=== PATIENT | female | born 1965 | race Caucasian/White ===

== ENCOUNTER 2017-04-15 14:03 | Emergency (ER) | payer SELFPAY ==
[~2017-04-15] VITALS: Ht 152.4 cm; Wt 53.0 kg
[~2017-04-15 14:03] MED LIST: CLEO300C2 PO; HYDR-3533 PO; IBUP600 PO
[2017-04-15 14:10] VITALS: BP 151/75; PULSE 101; RESP 20; TEMP 98.2; O2SAT 95
--- NOTE | 2017-04-15 14:23 | PD ---
HPI Chief Complaint: cough, shortness of breath Time Seen by Provider: 14:12 Travel History International Travel<30 days: No Contact w/Intl Traveler<30days: No Traveled to known affect area: No History of Present Illness HPI This 51-year-old female is complaining of shortness of breath. She has been coughing and has been congested. She is not bringing anything up when she coughs. She feels like she is not able to get air in. He smokes half a pack of cigarettes a day. She is not aware of any fever or chills. She has not had any trouble breathing before. She has no history of asthma. She has had heart palpitations in the past. She has had some abnormal liver function tests of uncertain etiology and is also had renal insufficiency and has been dialyzed in the past though she has been on dialysis now. PFSH Past Medical History Arthritis: Yes Blood Disorders: No Anxiety: Yes (OCC) Depression: No Heart Rhythm Problems: Yes ("HEART PALPITATIONS") Cancer: No Cardiovascular Problems: Yes High Cholesterol: No Diminished Hearing: No Endocrine: No GERD: Yes Genitourinary: Yes Headaches: Yes Hypertension: Yes Immune Disorder: No Musculoskeletal: Yes Neurologic: Yes Psychiatric: Yes Reproductive: No Respiratory: No Immunizations Current: Yes Pneumonia: Yes Renal Failure: Yes (2010) PNEUMOCCOCAL Vaccine (Year): 2 : 3 Para: 2 Miscarriage: 1 Past Surgical History Abdominal Surgery: Yes (APPENDECTOMY) Appendectomy: Yes Gynecologic Surgery: Yes (HYSTERECTOMY) Hysterectomy: Yes Oral Surgery: Yes (THROAT) Other Surgery: Yes (LEFT BREAST BIOPSY, VOCAL CORD) Social History Alcohol Use: Yes (daily one drink) Tobacco Use: Yes (1/2ppd ) Substance Use: Yes (etoh in past) Allergies-Medications (Allergen,Severity, Reaction): Coded Allergies: ampicillin (Unverified Allergy, Severe, Anaphylaxis, 04/15/17) Reported Meds & Prescriptions Reported Meds & Active Scripts Active Medrol Dosepak (Methylprednisolone) 4 Mg Dspk 4 Mg PO DIRECTED Per Pharmacist direction Zithromax Z-Jasiel (Azithromycin) 250 Mg Dspk 250 Mg PO DIRECTED 500 MG (2 tabs) day 1, then 1 tab days 2-5. Review of Systems General / Constitutional: No: Fever, Chills Eyes: No: Diploplia, Blurred Vision HENT: No: Headaches, Vertigo Cardiovascular: No: Chest Pain or Discomfort, Palpitations Respiratory: Positive: Cough, Shortness of Breath Gastrointestinal: No: Vomiting, Diarrhea Genitourinary: No: Urgency, Frequency Skin: No Rash, No Itching Neurologic: No: Weakness Physical Exam Narrative GENERAL: Well-developed female SKIN: Focused skin assessment warm/dry. HEAD: Atraumatic. Normocephalic. EYES: Pupils equal and round. No scleral icterus. No injection or drainage. ENT: No nasal bleeding or discharge. Mucous membranes pink and moist. NECK: Trachea midline. No JVD. CARDIOVASCULAR: Regular rate and rhythm. No murmur appreciated. RESPIRATORY: No accessory muscle use. There is an occasional wheeze Breath sounds equal bilaterally. GASTROINTESTINAL: Abdomen soft, non-tender, nondistended. Hepatic and splenic margins not palpable. MUSCULOSKELETAL: No obvious deformities. No clubbing. No cyanosis. No edema. NEUROLOGICAL: Awake and alert. No obvious cranial nerve deficits. Motor grossly within normal limits. Normal speech. PSYCHIATRIC: Appropriate mood and affect; insight and judgment normal. Data Data Last Documented VS Vital Signs Date Time Temp Pulse Resp B/P (MAP) Pulse Ox O2 Delivery O2 Flow Rate FiO2 04/15/17 14:10 98.2 101 20 151/75 (100) 95 04/15/17 14:10 Room Air Orders Orders Electrocardiogram (04/15/17 14:15) Complete Blood Count With Diff (04/15/17 14:15) Comprehensive Metabolic Panel (04/15/17 14:15) Troponin I (04/15/17 14:15) Influenzae A/B Antigen (04/15/17 14:15) Chest, Single Ap (04/15/17 14:15) Albuterol-Ipratropium Neb (Duoneb Neb) (04/15/17 14:30) Prednisone (Deltasone) (04/15/17 15:15) Labs Laboratory Tests Test 04/15/17 14:10 White Blood Count 8.2 TH/MM3 Red Blood Count 5.04 MIL/MM3 Hemoglobin 15.0 GM/DL Hematocrit 46.2 % Mean Corpuscular Volume 91.6 FL Mean Corpuscular Hemoglobin 29.7 PG Mean Corpuscular Hemoglobin Concent 32.4 % Red Cell Distribution Width 13.3 % Platelet Count 374 TH/MM3 Mean Platelet Volume 8.0 FL Neutrophils (%) (Auto) 60.8 % Lymphocytes (%) (Auto) 29.9 % Monocytes (%) (Auto) 7.2 % Eosinophils (%) (Auto) 1.0 % Basophils (%) (Auto) 1.1 % Neutrophils # (Auto) 4.9 TH/MM3 Lymphocytes # (Auto) 2.5 TH/MM3 Monocytes # (Auto) 0.6 TH/MM3 Eosinophils # (Auto) 0.1 TH/MM3 Basophils # (Auto) 0.1 TH/MM3 CBC Comment DIFF FINAL Differential Comment Blood Urea Nitrogen 9 MG/DL Creatinine 0.85 MG/DL Random Glucose 88 MG/DL Total Protein 8.3 GM/DL Albumin 4.2 GM/DL Calcium Level 8.3 MG/DL Alkaline Phosphatase 147 U/L Aspartate Amino Transf (AST/SGOT) 29 U/L Alanine Aminotransferase (ALT/SGPT) 17 U/L Total Bilirubin 0.1 MG/DL Sodium Level 141 MEQ/L Potassium Level 3.9 MEQ/L Chloride Level 107 MEQ/L Carbon Dioxide Level 23.5 MEQ/L Anion Gap 11 MEQ/L Estimat Glomerular Filtration Rate 71 ML/MIN Troponin I LESS THAN 0.02 NG/ML MDM Medical Decision Making Medical Screen Exam Complete: Yes Emergency Medical Condition: Yes Medical Record Reviewed: Yes Differential Diagnosis Differential includes pneumonia, bronchitis, COPD, asthma Narrative Course Chest x-ray is negative. Lab work shows normal liver function tests and kidney function is completely patient is bronchitis complicated by some early COPD she did not respond well to nebulizer treatments I'm not can continue that. I will initiate Zithromax and prednisone Diagnosis Primary Impression: Acute bronchitis Scripts Methylprednisolone Dosepak (Medrol Dosepak) 4 Mg Dspk 4 MG PO DIRECTED, #1 DSPK 0 Refills Per Pharmacist direction Prov: Chuckie Moreno MD 04/15/17 Azithromycin (Zithromax Z-Jasiel) 250 Mg Dspk 250 MG PO DIRECTED for Infection, #1 DSPK 0 Refills 500 MG (2 tabs) day 1, then 1 tab days 2-5. Prov: Chuckie Moreno MD 04/15/17 Disposition: 01 DISCHARGE HOME Condition: Stable Chuckie Moreno MD Apr 15, 2017 14:23
[2017-04-15] MEDS ORDERED: RESP: ALBUTEROL 2.5 MG/IPRATROPIUM 0.5 MG NEB (SCH) NEB ONE (14:30)
[2017-04-15 14:33] LABS: AUTOMATED NEUTROPHIL # 4.9 TH/MM3 (1.8-7.7); BASOPHIL # 0.1 TH/MM3 (0-0.2); BASOPHIL % 1.1 % (0.0-2.0); EOSINOPHIL # 0.1 TH/MM3 (0-0.4); HEMATOCRIT 46.2 % (35.0-46.0); HEMO FLAGS DIFF FINAL; LYMPH % 29.9 % (9.0-44.0); LYMPHOCYTE # 2.5 TH/MM3 (1.0-4.8); MEAN CELL VOLUME 91.6 FL (80.0-100.0); MEAN CORPUSCULAR HEMOGLOBIN 29.7 PG (27.0-34.0); MEAN CORPUSCULAR HGB CONC 32.4 % (32.0-36.0); MONO % 7.2 % (0.0-8.0); NEUT % 60.8 % (16.0-70.0); PLATELET COUNT 374 TH/MM3 (150-450); RED BLOOD COUNT 5.04 MIL/MM3 (4.00-5.30); RED CELL DISTRIBUTION WIDTH 13.3 % (11.6-17.2); WHITE BLOOD COUNT 8.2 TH/MM3 (4.0-11.0)
--- NOTE | 2017-04-15 14:35 | RADRPT ---
EXAM DATE/TIME: 04/15/2017 14:25 [facility] COMPARISON: CHEST SINGLE AP, March 12, 2014, 4:14. INDICATIONS : Short of breath and chest pain since this morning. MEDICAL HISTORY : None. SURGICAL HISTORY : None. ENCOUNTER: Initial ACUITY: 1 day PAIN SCORE: 8/10 LOCATION: Bilateral chest FINDINGS: A single view of the chest demonstrates the lungs to be symmetrically aerated without evidence of mas s, infiltrate or effusion. The cardiomediastinal contours are unremarkable. Osseous structures are intact. CONCLUSION: 1. No acute cardiopulmonary disease. Grant Eastman MD on April 15, 2017 at 14:32 Board Certified Radiologist. This report was verified electronically.
[2017-04-15 14:42] LABS: CHLORIDE 107 MEQ/L (98-107); POTASSIUM 3.9 MEQ/L (3.5-5.1); SODIUM (NA) 141 MEQ/L (136-145)
[2017-04-15 14:46] LABS: ANION GAP 11 MEQ/L (5-15); BICARBONATE 23.5 MEQ/L (21.0-32.0)
[2017-04-15 14:47] LABS: BLOOD UREA NITROGEN 9 MG/DL (7-18)
[2017-04-15 14:49] LABS: ALT (GPT) 17 U/L (10-53); AST (GOT) 29 U/L (15-37); GLOMERULAR FILTRATION RATE 71 ML/MIN (>89)
[2017-04-15 14:51] LABS: TOTAL BILIRUBIN ADULT 0.1 MG/DL (0.2-1.0)
[2017-04-15 14:52] LABS: ALKALINE PHOSPHATASE 147 U/L (45-117)
[2017-04-15] MEDS ORDERED: MEDR4PAK PO (15:06)
[2017-04-15] MEDS ORDERED: ZITHTAB PO (15:06)
[2017-04-15] MEDS ORDERED: predniSONE 20 MG TAB PO ONE (15:15)
[2017-04-15 15:19] VITALS: BP 142/64; PULSE 100; RESP 20; O2SAT 97
--- NOTE | 2017-04-17 12:20 | EKG ---
Date Performed: 04/15/2017 Time Performed: 14:07:38 PTAGE: 51 years EKG: SINUS TACHYCARDIA WITH SHORT IA INTERVAL POSSIBLE RIGHT ATRIAL ENLARGEMENT ABNORMAL RHYTHM ECG INTERPRETATION BASED ON A DEFAULT AGE OF 40 YEARS PREVIOUS TRACING : 03/18/2014 12.24 DOCTOR: Brian Reis Interpretating Date/Time 04/17/2017 12:18:55
== END 2017-04-15 16:10 | disposition home or self-care (01) ==
LOC: PHED 14:03
DX: J20.9 Acute bronchitis, unspecified (principal); F17.210 Nicotine dependence, cigarettes, uncomplicated
CPT/HCPCS: 71010; 80053; 84484; 85025; 87804; 93005; 94664; 99285; J7512